=== PATIENT | female | born 1995 | race Caucasian/White ===

== ENCOUNTER 2020-08-10 00:31 | Emergency (ER) | payer MEDICAID ==
[~2020-08-10] VITALS: Ht 157.5 cm; Wt 65.9 kg
[2020-08-10] MEDS ORDERED: HYDROcodone/acetaminophen 5mg/325mg tablet PO ONE (00:50)
[2020-08-10] MEDS ORDERED: CLIN-97 PO (00:52)
[2020-08-10 01:14] VITALS: BP 145/102
== END 2020-08-10 01:16 | disposition home or self-care (01) ==
LOC: ER 00:32
DX: K02.9 Dental caries, unspecified (principal); Z79.82 Long term (current) use of aspirin; Z88.1 Allergy status to other antibiotic agents; Z79.899 Other long term (current) drug therapy
CPT/HCPCS: 99283

== ENCOUNTER 2020-11-11 23:08 | Emergency (ER) | payer MEDICAID ==
[~2020-11-11] VITALS: Ht 157.5 cm; Wt 65.0 kg
[~2020-11-11 23:08] MED LIST: CLIN-97 PO
[2020-11-11 23:39] LABS: BASOPHILS # (AUTO) 0.1 X10'3 (0-0.2); EOSINOPHILS # (AUTO) 0.2 X10'3 (0-0.9); HEMATOCRIT 41.4 % (35.0-45.0); HEMOGLOBIN 14.4 g/dl (12.0-16.0); LYMPHOCYTES # (AUTO) 2.9 X10'3 (1.1-4.8); LYMPHOCYTES % (AUTO) 27.8 % (21-51); MEAN CORPUSCULAR HEMOGLOBIN 28.4 PG (27.0-31.0); MEAN CORPUSCULAR HGB CONC 34.8 g/dL (33.0-36.5); MEAN CORPUSCULAR VOLUME 81.6 FL (78-98); MEAN PLATELET VOLUME 8.1 FL (7.4-10.4); MONOCYTES # (AUTO) 0.8 X10'3 (0-0.9); MONOCYTES % (AUTO) 8.1 % (2-12); NEUTROPHILS # (AUTO) 6.4 X10'3 (1.8-7.7); NEUTROPHILS % (AUTO) 61.1 % (42-75); PLATELET COUNT 406 X10'3 (140-440); RED BLOOD COUNT 5.08 X10'6 (4.20-5.60); RED CELL DISTRIBUTION WIDTH 13.1 % (11.5-14.5); WHITE BLOOD COUNT 10.4 X10'3 (4.5-11.0)
[2020-11-11 23:48] LABS: URINE HCG NEGATIVE (NEG)
[2020-11-11 23:55] LABS: ALANINE AMINOTRANSFERASE 19 U/L (12-78); ALKALINE PHOSPHATASE 92 IU/L (46-116); ANION GAP 5 (8-16); ASPARTATE AMINO TRANSFERASE 14 U/L (10-37); BILIRUBIN,TOTAL 0.4 MG/DL (0.1-1.0); BLOOD UREA NITROGEN 14 MG/DL (7-18); BUN/CREATININE RATIO 16.1 (6.6-38.0); CHLORIDE 106 MMOL/L (99-107); CREATININE 0.87 MG/DL (0.40-0.90); GLUCOSE 84 MG/DL (70-104); LIPASE 181 U/L (73-393); POTASSIUM 3.7 MMOL/L (3.5-5.1); SODIUM 140 MMOL/L (135-145); eGFR 78 ML/MIN
[2020-11-12 00:04] LABS: CLARITY,URINE SLIGHTLY CLOUDY (Clear); COLOR,URINE YELLOW (Yellow); GLUCOSE, URINE NEGATIVE (Neg); KETONES,URINE NEGATIVE (Neg); LEUKOCYTE ESTERASE ,URINE TRACE (Neg); NITRITES, URINE NEGATIVE (Neg); OCCULT BLOOD,URINE TRACE-INTACT (Neg); PROTEIN,URINE NEGATIVE (Neg); UROBILINOGEN,URINE 0.2 E.U/dL (0.2-1.0)
[2020-11-12 00:05] LABS: UA COLLECTION TYPE CLN CATCH MIDSTREAM
[2020-11-12 00:15] LABS: BACTERIA,URINE 3+ /HPF (Neg); MUCUS STRANDS NONE SEEN /LPF (Neg); RBC,URINE 0-2 /HPF (0-2); SQUAMOUS EPITHELIAL CELL,UR FEW /LPF (FEW); WBC,URINE 50-100 /HPF (0-4)
[2020-11-12] MEDS ORDERED: CEFD300C3 PO (02:43)
[2020-11-12] MEDS ORDERED: CefTRIAXone 250MG inj IM ONE (02:45)
[2020-11-12] MEDS ORDERED: CefTRIAXone 1000mg IM Kit (w/lidocaine diluent) IM ONE (02:50)
[2020-11-12] MEDS ORDERED: oxyCODONE/APAP 5-325mg tablet PO ONE (03:00)
--- NOTE | 2020-11-12 03:00 | NUR ---
PT GIVEN IM ABX, PT INSTUCTED TO WAIT 30 MIN FOR OBSERVATION .
--- NOTE | 2020-11-12 03:37 | NUR ---
PT OBSERED FOR ANY S/S OF ALLERGIC REACTION, PT DENIES ANY NEW SYMPTOMS
[2020-11-12 03:38] VITALS: BP 126/81
== END 2020-11-12 03:38 | disposition home or self-care (01) ==
LOC: ER 23:08
DX: N10 Acute pyelonephritis (principal); G89.29 Other chronic pain; Z87.440 Personal history of urinary (tract) infections; Z72.89 Other problems related to lifestyle; Z88.1 Allergy status to other antibiotic agents; Z79.2 Long term (current) use of antibiotics
CPT/HCPCS: 36415; 80053; 81001; 81025; 83690; 85025; 87077; 87088; 87186; 96372; 99283; J0696; 81003

== ENCOUNTER 2020-11-12 18:20 | Emergency (ER) | payer MEDICAID ==
[~2020-11-12] VITALS: Ht 157.5 cm; Wt 67.1 kg
[~2020-11-12 18:20] MED LIST changes: +CEFD300C3 PO
[2020-11-12 20:41] LABS: BASOPHILS # (AUTO) 0.1 X10'3 (0-0.2); BASOPHILS % (AUTO) 0.7 % (0-1); EOSINOPHILS # (AUTO) 0.2 X10'3 (0-0.9); EOSINOPHILS % (AUTO) 1.5 % (0-6); HEMATOCRIT 42.6 % (35.0-45.0); HEMOGLOBIN 14.9 g/dl (12.0-16.0); LYMPHOCYTES # (AUTO) 2.4 X10'3 (1.1-4.8); LYMPHOCYTES % (AUTO) 22.2 % (21-51); MEAN CORPUSCULAR HEMOGLOBIN 28.8 PG (27.0-31.0); MEAN CORPUSCULAR VOLUME 82.2 FL (78-98); MEAN PLATELET VOLUME 8.1 FL (7.4-10.4); MONOCYTES # (AUTO) 0.8 X10'3 (0-0.9); MONOCYTES % (AUTO) 6.9 % (2-12); NEUTROPHILS # (AUTO) 7.6 X10'3 (1.8-7.7); NEUTROPHILS % (AUTO) 68.7 % (42-75); PLATELET COUNT 399 X10'3 (140-440); RED BLOOD COUNT 5.18 X10'6 (4.20-5.60); RED CELL DISTRIBUTION WIDTH 13.2 % (11.5-14.5)
[2020-11-12 20:42] LABS: URINE HCG NEGATIVE (NEG)
[2020-11-12 20:43] LABS: CLARITY,URINE CLEAR (Clear); COLOR,URINE YELLOW (Yellow); GLUCOSE, URINE NEGATIVE (Neg); KETONES,URINE NEGATIVE (Neg); LEUKOCYTE ESTERASE ,URINE TRACE (Neg); NITRITES, URINE NEGATIVE (Neg); OCCULT BLOOD,URINE TRACE-LYSED (Neg); PROTEIN,URINE NEGATIVE (Neg); UA COLLECTION TYPE CLN CATCH MIDSTREAM; UROBILINOGEN,URINE 0.2 E.U/dL (0.2-1.0)
[2020-11-12 20:48] LABS: BACTERIA,URINE 1+ /HPF (Neg); MUCUS STRANDS NONE SEEN /LPF (Neg); RBC,URINE 0-2 /HPF (0-2); SQUAMOUS EPITHELIAL CELL,UR FEW /LPF (FEW); WBC CLUMPS,URINE FEW /HPF (NEGATIVE)
[2020-11-12 20:55] LABS: ALANINE AMINOTRANSFERASE 21 U/L (12-78); ALKALINE PHOSPHATASE 94 IU/L (46-116); ANION GAP 9 (8-16); ASPARTATE AMINO TRANSFERASE 14 U/L (10-37); BILIRUBIN,TOTAL 0.7 MG/DL (0.1-1.0); BLOOD UREA NITROGEN 12 MG/DL (7-18); CALCIUM 8.9 MG/DL (8.5-10.1); CHLORIDE 106 MMOL/L (99-107); GLUCOSE 92 MG/DL (70-104); LIPASE 107 U/L (73-393); POTASSIUM 4.1 MMOL/L (3.5-5.1); SODIUM 142 MMOL/L (135-145); TOTAL PROTEIN 8.2 G/DL (6.4-8.2); eGFR 86 ML/MIN
[2020-11-12] MEDS: ondansetron/PF 4mg/2ml inj IV ONE (21:00)
[2020-11-12] MEDS: normal saline 1000ML IV soln IVB ONE (21:00)
[2020-11-12 21:12] VITALS: BP 107/76
[2020-11-12] MEDS: ketorolac trometh. 30mg/ml inj. IV ONE (21:41)
[2020-11-12] MEDS: HYDROcodone/acetaminophen 5mg/325mg tablet PO ONE (21:41)
== END 2020-11-12 22:10 | disposition home or self-care (01) ==
LOC: ER 18:21
DX: N10 Acute pyelonephritis (principal); R10.84 Generalized abdominal pain; G89.29 Other chronic pain; Z87.440 Personal history of urinary (tract) infections; Z98.890 Other specified postprocedural states; Z72.89 Other problems related to lifestyle; Z88.1 Allergy status to other antibiotic agents; Z79.2 Long term (current) use of antibiotics
CPT/HCPCS: 36415; 80053; 81001; 81025; 83690; 85025; 87088; 96374; 96375; 99284; J1885; J2405; J7030

== ENCOUNTER 2021-04-08 00:53 | Emergency (ER) | payer MEDICAID ==
[~2021-04-08] VITALS: Ht 157.5 cm; Wt 68.0 kg
[~2021-04-08 00:53] MED LIST changes: -CEFD300C3 PO
[2021-04-08 02:11] VITALS: BP 142/93
== END 2021-04-08 01:56 | disposition home or self-care (01) ==
LOC: ER 00:55
DX: R10.84 Generalized abdominal pain (principal); G89.29 Other chronic pain; Z87.440 Personal history of urinary (tract) infections; Z98.890 Other specified postprocedural states; Z72.89 Other problems related to lifestyle; Z88.1 Allergy status to other antibiotic agents; Z79.2 Long term (current) use of antibiotics
CPT/HCPCS: 99284

== ENCOUNTER 2021-06-08 19:23 | Emergency (ER) | payer MEDICAID ==
[~2021-06-08] VITALS: Ht 157.5 cm; Wt 74.5 kg
[2021-06-08 19:29] VITALS: BP 139/96
[2021-06-08 19:45] LABS: BASOPHILS # (AUTO) 0.1 X10'3 (0-0.2); BASOPHILS % (AUTO) 0.9 % (0-1); EOSINOPHILS # (AUTO) 0.1 X10'3 (0-0.9); EOSINOPHILS % (AUTO) 0.6 % (0-6); HEMATOCRIT 42.3 % (35.0-45.0); HEMOGLOBIN 14.9 g/dl (12.0-16.0); LYMPHOCYTES # (AUTO) 2.2 X10'3 (1.1-4.8); LYMPHOCYTES % (AUTO) 21.1 % (21-51); MEAN CORPUSCULAR HEMOGLOBIN 29.3 PG (27.0-31.0); MEAN CORPUSCULAR HGB CONC 35.3 g/dL (33.0-36.5); MEAN PLATELET VOLUME 8.4 FL (7.4-10.4); MONOCYTES # (AUTO) 0.6 X10'3 (0-0.9); MONOCYTES % (AUTO) 5.5 % (2-12); NEUTROPHILS # (AUTO) 7.4 X10'3 (1.8-7.7); NEUTROPHILS % (AUTO) 71.9 % (42-75); PLATELET COUNT 345 X10'3 (140-440); RED CELL DISTRIBUTION WIDTH 12.8 % (11.5-14.5); WHITE BLOOD COUNT 10.2 X10'3 (4.5-11.0)
[2021-06-08 20:00] LABS: ALANINE AMINOTRANSFERASE 19 U/L (12-78); ALBUMIN 4.1 G/DL (3.4-5.0); ALBUMIN/GLOBULIN RATIO 1.1 (1.1-1.5); ALKALINE PHOSPHATASE 86 IU/L (46-116); ANION GAP 12 (8-16); ASPARTATE AMINO TRANSFERASE 15 U/L (10-37); BILIRUBIN,TOTAL 0.8 MG/DL (0.1-1.0); BLOOD UREA NITROGEN 10 MG/DL (7-18); CALCIUM 8.7 MG/DL (8.5-10.1); CHLORIDE 109 MMOL/L (99-107); CREATININE 0.83 MG/DL (0.40-0.90); GLUCOSE 98 MG/DL (70-104); LIPASE 138 U/L (73-393); POTASSIUM 3.6 MMOL/L (3.5-5.1); SODIUM 146 MMOL/L (135-145); TOTAL CARBON DIOXIDE 24.8 MMOL/L (24-32); TOTAL PROTEIN 7.8 G/DL (6.4-8.2); eGFR 82 ML/MIN
[2021-06-08 20:08] LABS: URINE HCG NEGATIVE (NEG)
[2021-06-08 20:10] LABS: CLARITY,URINE SLIGHTLY CLOUDY (Clear); COLOR,URINE YELLOW (Yellow); GLUCOSE, URINE NEGATIVE (Neg); KETONES,URINE NEGATIVE (Neg); LEUKOCYTE ESTERASE ,URINE TRACE (Neg); NITRITES, URINE NEGATIVE (Neg); OCCULT BLOOD,URINE TRACE-INTACT (Neg); PROTEIN,URINE NEGATIVE (Neg); UROBILINOGEN,URINE 0.2 E.U/dL (0.2-1.0)
[2021-06-08 20:11] LABS: UA COLLECTION TYPE CLN CATCH MIDSTREAM
[2021-06-08 20:24] LABS: BACTERIA,URINE 2+ /HPF (Neg); MUCUS STRANDS MANY /LPF (Neg); RBC,URINE 0-2 /HPF (0-2); SQUAMOUS EPITHELIAL CELL,UR MODERATE /LPF (FEW); WBC CLUMPS,URINE FEW /HPF (NEGATIVE); WBC,URINE 20-30 /HPF (0-4)
[2021-06-08] MEDS ORDERED: NITR100C PO (22:10)
== END 2021-06-08 22:29 | disposition home or self-care (01) ==
LOC: ER 19:23
DX: N39.0 Urinary tract infection, site not specified (principal)
CPT/HCPCS: 36415; 80053; 81001; 81025; 83690; 85025; 87077; 87088; 87186; 99283